=== PATIENT | female | born 1980 | race Caucasian/White ===

== ENCOUNTER 2017-09-22 05:02 | Emergency (ER) | payer MEDICAID ==
[~2017-09-22] VITALS: Ht 162.6 cm; Wt 90.7 kg
[2017-09-22 05:15] VITALS: BP_SYST 157
[2017-09-22] MEDS ORDERED: PREDNISONE 20 MG TABLET PO ONE (06:15)
[2017-09-22] MEDS ORDERED: AMOXICILLIN 500 MG CAPSULE PO ONE (06:15)
[2017-09-22 06:26] VITALS: BP_SYST 153
== END 2017-09-22 06:26 | disposition home or self-care (01) ==
LOC: SED 05:02
DX: J02.9 Acute pharyngitis, unspecified (principal); R13.10 Dysphagia, unspecified; I10 Essential (primary) hypertension; Z90.49 Acquired absence of other specified parts of digestive tract; F17.200 Nicotine dependence, unspecified, uncomplicated
CPT/HCPCS: 36415; 86403; 87081; 99284; J7512